=== PATIENT | female | born 1950 | race Caucasian/White ===

== ENCOUNTER 2017-10-30 11:57 | Inpatient (IN) | payer OTHER, MEDICAID ==
[2017-10-30 14:10] LABS: ADD MAN DIFF? NO
[2017-10-30 14:13] LABS: WHITE BLOOD COUNT 8.1 10^3/ul (4.8-10.8)
[2017-10-30 14:13] LABS: BASOPHIL # 0.1 10^3/ul (0.0-0.1); BASOPHILS % 0.9 % (0.0-2.0); EOSINOPHILS % 0.2 % (0.0-7.0); HEMATOCRIT 35.9 % (37.0-47.0); HEMOGLOBIN 11.8 g/dl (12.0-16.0); LYMPHOCYTES # 1.4 10^3/ul (0.8-2.9); LYMPHOCYTES % 17.7 % (15.0-51.0); MEAN CORPUSCULAR HEMOGLOBIN 29.8 pg (29.0-33.0); MEAN CORPUSCULAR HGB CONC 32.9 g/dl (32.0-37.0); MEAN CORPUSCULAR VOLUME 90.7 fl (82.0-101.0); MEAN PLATELET VOLUME 10.5 fl (7.4-10.4); MONOCYTE # 0.5 10^3/ul (0.3-0.9); MONOCYTES % 5.9 % (0.0-11.0); NEUTROPHILS % 73.9 % (39.0-77.0); PLATELET COUNT 279 10^3/UL (140-415); RED BLOOD COUNT 3.96 10^6/ul (4.20-5.40); RED CELL DISTRIBUTION WIDTH 13.2 % (11.5-14.5)
[2017-10-30] MEDS: PIPER-TAZO 3.375 GM IV (PMX) 100 ML IVPB (14:18)
[2017-10-30] MEDS: SOD CHLORIDE 0.9% 1,000 ML IV ×2 (14:18→16:58)
[2017-10-30] MEDS: INSULIN LISPRO 100 UNIT/ML VIAL SC ×2 (14:28→16:50)
[2017-10-30 14:32] LABS: ALANINE AMINOTRANSFERASE 14 IU/L (13-69); ALBUMIN 4.6 g/dl (3.3-4.9); ALBUMIN/GLOBULIN RATIO 1.27; ALKALINE PHOSPHATASE 131 IU/L (42-121); ANION GAP 23 (8-16); ASPARTATE AMINO TRANSFERASE 16 IU/L (15-46); BILIRUBIN,INDIRECT 0.5 mg/dl (0-1.1); BILIRUBIN,TOTAL 0.5 mg/dl (0.2-1.3); BLOOD UREA NITROGEN 41 mg/dl (7-20); CARBON DIOXIDE 23 mmol/L (21-31); CHLORIDE 90 mmol/L (97-110); CREATININE 2.84 mg/dl (0.44-1.00); LIPASE 164 U/L (23-300); POTASSIUM 4.9 mmol/L (3.5-5.1); SODIUM 131 mmol/L (135-144); TOTAL PROTEIN 8.2 g/dl (6.1-8.1)
[2017-10-30 14:33] LABS: ADD UMIC YES; UR ASCORBIC ACID NEGATIVE (NEGATIVE); UR BILIRUBIN (Dip) NEGATIVE (NEGATIVE); UR BLOOD (Dip) 1+ mg/dL (NEGATIVE); UR BUDDING YEAST MODERATE /HPF (NONE SEEN); UR CLARITY TURBID (CLEAR); UR COLOR YELLOW (YELLOW); UR GLUCOSE (Dip) 3+ mg/dL (NEGATIVE); UR KETONES (Dip) TRACE mg/dL (NEGATIVE); UR LEUKOCYTE ESTERASE (Dip) 2+ Leu/ul (NEGATIVE); UR NITRITE (Dip) NEGATIVE (NEGATIVE); UR RBC 37 /HPF (0-5); UR SPECIFIC GRAVITY (Dip) 1.013 (1.003-1.030); UR TOTAL PROTEIN (Dip) 2+ mg/dl (NEGATIVE); UR UROBILINOGEN (Dip) NEGATIVE (NEGATIVE); UR WBC > 182 /HPF (0-5)
[2017-10-30 14:36] LABS: GLUCOSE 601 mg/dl (70-220)
[2017-10-30] MEDS: FLUCONAZOLE 200 MG TAB PO (15:27)
[2017-10-30 16:17] LABS: OSMOLALITY 311 mOsm/kg (280-295)
[2017-10-30] MEDS ORDERED: HYDROCODONE/APAP (5/325) TAB PO (16:30)
[2017-10-30] MEDS ORDERED: ONDANSETRON 4 MG INJ IV (16:30)
[2017-10-30] MEDS ORDERED: NACL 0.9% 3 ML SYG IV (16:30)
[2017-10-30 16:47] LABS: HEMOGLOBIN A1C 13.5 % (0-5.9)
[2017-10-30 16:55] LABS: FREE T4 (FREE THYROXINE) 1.51 ng/dl (0.78-2.44)
[2017-10-30] MEDS ORDERED: GLUCAGON 1 MG INJ IM (17:00)
[2017-10-30] MEDS ORDERED: GLUCOSE GEL 15 GRAM TUBE PO ×2 (17:00)
[2017-10-30] MEDS ORDERED: GLUCOSE GEL 15 GRAM TUBE BUCCAL (17:00)
[2017-10-30] MEDS ORDERED: DEXTROSE 50% 50 ML SYRINGE IV ×2 (17:00)
[2017-10-30 17:05] LABS: INR 0.97
[2017-10-30 17:06] LABS: PARTIAL THROMBOPLASTIN TIME 26.9 Sec (25.0-35.0)
[2017-10-30 17:09] LABS: SODIUM,URINE RANDOM 50 mmol/L (30-90)
[2017-10-30 17:15] LABS: LACTIC ACID 3.9 mmol/L (0.5-2.0)
[2017-10-30 17:16] LABS: OSMOLALITY,URINE 372 mOsm/kg (250-1200)
[2017-10-30] MEDS: INSULIN ASPART [NOVOLOG] 3 ML PEN SC ×3 (18:05→20:24)
[2017-10-30 20:18] LABS: LACTIC ACID 2.3 mmol/L (0.5-2.0)
[2017-10-30] MEDS: NIFEdipine (XL) 30 MG TAB PO (20:20)
[2017-10-30] MEDS: INSULIN GLARGINE [LANtus] 3 ML PEN SC (21:30)
[2017-10-30] MEDS: PIPER-TAZO 2.25 GM (PMX) 50 ML IVPB (22:21)
[2017-10-30] MEDS: HEPARIN 5,000 UNIT/0.5 ML VIAL SC (22:22)
[2017-10-30 23:56] LABS: LACTIC ACID 1.5 mmol/L (0.5-2.0)
[2017-10-31] MEDS: SOD CHLORIDE 0.9% 1,000 ML IV ×3 (01:14→12:05)
[2017-10-31] MEDS: HEPARIN 5,000 UNIT/0.5 ML VIAL SC ×3 (05:55→22:14)
[2017-10-31] MEDS: PIPER-TAZO 2.25 GM (PMX) 50 ML IVPB ×2 (05:56→13:32)
[2017-10-31 06:33] LABS: ADD MAN DIFF? NO
[2017-10-31 06:35] LABS: BASOPHIL # 0.1 10^3/ul (0.0-0.1); BASOPHILS % 0.8 % (0.0-2.0); EOSINOPHILS # 0.1 10^3/ul (0.0-0.5); EOSINOPHILS % 1.7 % (0.0-7.0); HEMOGLOBIN 9.8 g/dl (12.0-16.0); LYMPHOCYTES # 1.9 10^3/ul (0.8-2.9); LYMPHOCYTES % 31.3 % (15.0-51.0); MEAN CORPUSCULAR HEMOGLOBIN 29.6 pg (29.0-33.0); MEAN CORPUSCULAR HGB CONC 32.7 g/dl (32.0-37.0); MEAN CORPUSCULAR VOLUME 90.6 fl (82.0-101.0); MEAN PLATELET VOLUME 10.3 fl (7.4-10.4); MONOCYTE # 0.5 10^3/ul (0.3-0.9); NEUTROPHIL # 3.4 10^3/ul (1.6-7.5); NEUTROPHILS % 56.5 % (39.0-77.0); PLATELET COUNT 211 10^3/UL (140-415); RED BLOOD COUNT 3.31 10^6/ul (4.20-5.40); RED CELL DISTRIBUTION WIDTH 13.2 % (11.5-14.5)
[2017-10-31 06:58] LABS: ALANINE AMINOTRANSFERASE 13 IU/L (13-69); ALBUMIN 3.3 g/dl (3.3-4.9); ALBUMIN/GLOBULIN RATIO 1.13; ALKALINE PHOSPHATASE 95 IU/L (42-121); ANION GAP 13 (8-16); ASPARTATE AMINO TRANSFERASE 15 IU/L (15-46); BILIRUBIN,INDIRECT 0.5 mg/dl (0-1.1); BILIRUBIN,TOTAL 0.5 mg/dl (0.2-1.3); BLOOD UREA NITROGEN 36 mg/dl (7-20); CALCIUM 8.3 mg/dl (8.4-10.2); CARBON DIOXIDE 25 mmol/L (21-31); CHLORIDE 103 mmol/L (97-110); CREATININE 2.18 mg/dl (0.44-1.00); GLUCOSE 241 mg/dl (70-220); POTASSIUM 3.5 mmol/L (3.5-5.1); SODIUM 137 mmol/L (135-144); TOTAL PROTEIN 6.2 g/dl (6.1-8.1)
[2017-10-31 07:04] LABS: CHOLESTEROL 291 mg/dl (100-200); HDL CHOLESTEROL 29 mg/dl (35-98); MAGNESIUM 1.4 mg/dl (1.7-2.5)
[2017-10-31 07:04] LABS: PHOSPHORUS 3.8 mg/dl (2.5-4.9)
[2017-10-31 07:17] LABS: LDL CHOLESTEROL,CALCULATED 107 mg/dl; TRIGLYCERIDES 774 mg/dl (0-149)
[2017-10-31 07:43] LABS: LACTIC ACID 1.7 mmol/L (0.5-2.0)
[2017-10-31] MEDS: INSULIN ASPART [NOVOLOG] 3 ML PEN SC ×7 (08:27→19:57)
[2017-10-31] MEDS: NIFEdipine (XL) 30 MG TAB PO (08:28)
[2017-10-31] MEDS: ACETAMINOPHEN 325 MG TAB PO (08:28)
[2017-10-31] MEDS ORDERED: MAGNESIUM SULFATE 3 GM in DEXTROSE 5% 100 ML IVPB (10:00)
[2017-10-31] MEDS: MAGNESIUM SULFATE 1 GM/D5W 100 ML IVPB ×3 (10:10→14:51)
[2017-10-31] MEDS ORDERED: MAGNESIUM SULFATE 2 GM/50 ML 50 ML IVPB (15:30)
[2017-10-31 16:53] LABS: SODIUM,URINE RANDOM 63 mmol/L (30-90)
[2017-10-31] MEDS: FLUCONAZOLE 100 MG TAB PO (17:02)
[2017-10-31] MEDS: CEFTRIAXONE 1 GM/50 ML (PMX) 50 ML IVPB (17:02)
[2017-10-31] MEDS ORDERED: ATORVASTATIN 40 MG TAB (19:32)
[2017-10-31] MEDS: ATORVASTATIN 40 MG TAB PO ×2 (19:55→20:05)
[2017-10-31] MEDS: INSULIN GLARGINE [LANtus] 3 ML PEN SC (19:56)
[2017-11-01] MEDS: SOD CHLORIDE 0.9% 1,000 ML IV (04:26)
[2017-11-01] MEDS: HEPARIN 5,000 UNIT/0.5 ML VIAL SC ×3 (05:47→22:09)
[2017-11-01 05:54] LABS: ADD MAN DIFF? NO
[2017-11-01 06:00] LABS: WHITE BLOOD COUNT 5.2 10^3/ul (4.8-10.8)
[2017-11-01 06:00] LABS: BASOPHIL # 0.1 10^3/ul (0.0-0.1); EOSINOPHILS # 0.1 10^3/ul (0.0-0.5); EOSINOPHILS % 2.5 % (0.0-7.0); HEMOGLOBIN 9.3 g/dl (12.0-16.0); LYMPHOCYTES % 38.4 % (15.0-51.0); MEAN CORPUSCULAR HEMOGLOBIN 29.2 pg (29.0-33.0); MEAN CORPUSCULAR HGB CONC 32.1 g/dl (32.0-37.0); MEAN CORPUSCULAR VOLUME 90.9 fl (82.0-101.0); MEAN PLATELET VOLUME 10.1 fl (7.4-10.4); MONOCYTE # 0.5 10^3/ul (0.3-0.9); MONOCYTES % 8.7 % (0.0-11.0); NEUTROPHIL # 2.5 10^3/ul (1.6-7.5); NEUTROPHILS % 47.7 % (39.0-77.0); PLATELET COUNT 225 10^3/UL (140-415); RED BLOOD COUNT 3.19 10^6/ul (4.20-5.40); RED CELL DISTRIBUTION WIDTH 13.2 % (11.5-14.5)
[2017-11-01 06:20] LABS: MAGNESIUM 2.3 mg/dl (1.7-2.5)
[2017-11-01 06:20] LABS: PHOSPHORUS 3.7 mg/dl (2.5-4.9)
[2017-11-01 06:32] LABS: ANION GAP 10 (8-16); BLOOD UREA NITROGEN 22 mg/dl (7-20); CALCIUM 8.3 mg/dl (8.4-10.2); CARBON DIOXIDE 25 mmol/L (21-31); CHLORIDE 107 mmol/L (97-110); CREATININE 1.44 mg/dl (0.44-1.00); GLUCOSE 107 mg/dl (70-220); POTASSIUM 3.2 mmol/L (3.5-5.1); SODIUM 139 mmol/L (135-144)
[2017-11-01 06:46] LABS: URIC ACID 6.5 mg/dl (3.1-7.9)
[2017-11-01] MEDS: INSULIN ASPART [NOVOLOG] 3 ML PEN SC ×7 (08:00→20:30)
[2017-11-01] MEDS: FLUCONAZOLE 100 MG TAB PO (08:04)
[2017-11-01] MEDS: POTASSIUM CHLORIDE (SR) 20 MEQ TAB PO (10:20)
[2017-11-01 11:48] LABS: IRON 50 ug/dl (35-150)
[2017-11-01 11:57] LABS: % IRON SATURATION 19 % SAT (22-52); TOTAL IRON BINDING CAPACITY 259 ug/dl (241-421)
[2017-11-01 12:33] LABS: FERRITIN 34.7 ng/ml (11.1-264.0)
[2017-11-01] MEDS: CEFTRIAXONE 1 GM/50 ML (PMX) 50 ML IVPB (15:01)
[2017-11-01] MEDS: BISACODYL (EC) 5 MG TAB PO (15:02)
[2017-11-01] MEDS: FISH OIL 1,000 MG CAP PO (20:28)
[2017-11-01] MEDS: INSULIN GLARGINE [LANtus] 3 ML PEN SC (20:29)
[2017-11-02 05:17] LABS: ADD MAN DIFF? NO
[2017-11-02 05:25] LABS: WHITE BLOOD COUNT 4.7 10^3/ul (4.8-10.8)
[2017-11-02 05:25] LABS: BASOPHIL # 0.1 10^3/ul (0.0-0.1); BASOPHILS % 1.1 % (0.0-2.0); EOSINOPHILS # 0.1 10^3/ul (0.0-0.5); EOSINOPHILS % 2.3 % (0.0-7.0); HEMATOCRIT 29.1 % (37.0-47.0); HEMOGLOBIN 9.4 g/dl (12.0-16.0); LYMPHOCYTES % 41.6 % (15.0-51.0); MEAN CORPUSCULAR HEMOGLOBIN 29.7 pg (29.0-33.0); MEAN CORPUSCULAR HGB CONC 32.3 g/dl (32.0-37.0); MEAN CORPUSCULAR VOLUME 92.1 fl (82.0-101.0); MEAN PLATELET VOLUME 10.2 fl (7.4-10.4); MONOCYTE # 0.4 10^3/ul (0.3-0.9); MONOCYTES % 8.7 % (0.0-11.0); NEUTROPHIL # 2.1 10^3/ul (1.6-7.5); NEUTROPHILS % 43.6 % (39.0-77.0); PLATELET COUNT 209 10^3/UL (140-415); RED BLOOD COUNT 3.16 10^6/ul (4.20-5.40); RED CELL DISTRIBUTION WIDTH 13.6 % (11.5-14.5)
[2017-11-02 05:53] LABS: ANION GAP 11 (8-16); BLOOD UREA NITROGEN 20 mg/dl (7-20); CALCIUM 8.7 mg/dl (8.4-10.2); CARBON DIOXIDE 25 mmol/L (21-31); CHLORIDE 108 mmol/L (97-110); CREATININE 1.28 mg/dl (0.44-1.00); GLUCOSE 128 mg/dl (70-220); POTASSIUM 4.2 mmol/L (3.5-5.1); SODIUM 140 mmol/L (135-144)
[2017-11-02] MEDS: HEPARIN 5,000 UNIT/0.5 ML VIAL SC (05:53)
[2017-11-02 05:55] LABS: MAGNESIUM 1.9 mg/dl (1.7-2.5)
[2017-11-02 05:55] LABS: PHOSPHORUS 3.7 mg/dl (2.5-4.9)
[2017-11-02] MEDS: INSULIN ASPART [NOVOLOG] 3 ML PEN SC ×4 (08:00→12:24)
[2017-11-02] MEDS: FISH OIL 1,000 MG CAP PO (08:11)
[2017-11-02] MEDS: FLUCONAZOLE 100 MG TAB PO (08:12)
[2017-11-02] MEDS: CHOLECALCIFEROL 1,000 UNIT TAB PO (10:53)
[2017-11-02] MEDS: MAGNESIUM CITRATE 300 ML BTL PO (13:06)
[2017-11-02 13:24] LABS: ADD UMIC YES; UR ASCORBIC ACID NEGATIVE (NEGATIVE); UR BACTERIA FEW /HPF (NONE SEEN); UR BILIRUBIN (Dip) NEGATIVE (NEGATIVE); UR BLOOD (Dip) NEGATIVE (NEGATIVE); UR BUDDING YEAST FEW /HPF (NONE SEEN); UR CLARITY SLIGHTLY CLOUDY (CLEAR); UR COLOR YELLOW (YELLOW); UR GLUCOSE (Dip) 1+ mg/dL (NEGATIVE); UR KETONES (Dip) NEGATIVE (NEGATIVE); UR LEUKOCYTE ESTERASE (Dip) 1+ Leu/ul (NEGATIVE); UR NITRITE (Dip) NEGATIVE (NEGATIVE); UR RBC 1 /HPF (0-5); UR SPECIFIC GRAVITY (Dip) 1.012 (1.003-1.030); UR SQUAMOUS EPITHELIAL CELL FEW /HPF (FEW); UR TOTAL PROTEIN (Dip) NEGATIVE (NEGATIVE); UR UROBILINOGEN (Dip) NEGATIVE (NEGATIVE); UR WBC 62 /HPF (0-5)
== END 2017-11-02 16:17 | disposition home or self-care (01) | DRG 690 ==
LOC: PP2 10-31 03:56 → E/R 11:57 → PP2 15:05
PROVIDERS: Internal Medicine
DX: N39.0 Urinary tract infection, site not specified (principal); N17.9 Acute kidney failure, unspecified; E87.1 Hypo-osmolality and hyponatremia; E87.2 Acidosis; E11.22 Type 2 diabetes mellitus with diabetic chronic kidney disease; E11.65 Type 2 diabetes mellitus with hyperglycemia; N28.1 Cyst of kidney, acquired; E78.5 Hyperlipidemia, unspecified; I12.9 Hypertensive chronic kidney disease with stage 1 through stage 4 chronic kidney disease, or unspecified chronic kidney disease; N18.9 Chronic kidney disease, unspecified; Z79.4 Long term (current) use of insulin; Z79.84 Long term (current) use of oral hypoglycemic drugs; Z87.442 Personal history of urinary calculi
CPT/HCPCS: 36415; 74176; 76775; 80048; 80053; 80061; 81001; 82306; 82652; 82728; 82962; 83036; 83540; 83605; 83690; 83735; 83930; 83935; 84100; 84300; 84439; 84443; 84560; 85025; 85610; 85730; 87040; 87086; 89190; 96361; 96372; 96374; 99285-25